=== PATIENT | female | born 1970 | race Caucasian/White ===

== ENCOUNTER 2017-02-11 15:35 | Observation (INO) | payer MEDICAID, OTHER ==
[~2017-02-11] VITALS: Ht 170.2 cm; Wt 67.0 kg
[~2017-02-11 15:35] MED LIST: CEPH-368 PO; CITA10TA8; CITA20TA9 PO; GABA100C8 PO; MELO-184; TRAZ100T15
[2017-02-11] MEDS ORDERED: ALPR0.25 PO (15:47)
[2017-02-11] MEDS ORDERED: SODIUM CHLORIDE 0.9% 1,000 ML IV ONE (15:59)
[2017-02-11] MEDS ORDERED: SODIUM CHLORIDE 0.9% 1,000ML IVBOLUS ONE (16:00)
[2017-02-11] MEDS ORDERED: ONDANSETRON 2MG/ML, 2ML IVPush ONE (16:00)
[2017-02-11 16:34] LABS: ASPARTATE AMINO TRANSFERASE 31 U/L (15-37); BLOOD UREA NITROGEN 18 mg/dL (7-18)
[2017-02-11 16:44] LABS: ACETAMINOPHEN < 2 mcg/mL (10-30)
[2017-02-11 18:37] LABS: DAU SCREEN DISCLAIMER
[2017-02-11] MEDS ORDERED: LORazepam 1MG TABLET PO ONE (20:00)
[2017-02-11] MEDS ORDERED: LORazepam 1MG TABLET ONE ×2 (20:08→22:24)
[2017-02-11] MEDS ORDERED: DIPHENHYDRAMINE 50 MG CAPSULE PO PRN (21:30)
[2017-02-11] MEDS ORDERED: ONDANSETRON ODT 4 MG PO PRN (21:30)
[2017-02-11] MEDS ORDERED: ACETAMINOPHEN 325 MG TABLET PO PRN (21:30)
[2017-02-11] MEDS ORDERED: POLYETHYLENE GLYCOL 17 GM PACKET PO PRN (21:30)
[2017-02-11] MEDS ORDERED: ZIPRASIDONE 20 MG INJ IM PRN (21:30)
[2017-02-11] MEDS ORDERED: HALOPERIDOL 5 MG TABLET PO PRN (21:30)
[2017-02-11] MEDS ORDERED: DOCUSATE 100 MG CAPSULE PO PRN (21:30)
[2017-02-12 01:52] VITALS: BP 119/81
[2017-02-12 02:16] VITALS: BP 120/75
[2017-02-12 07:47] VITALS: BP 152/86
[2017-02-12] MEDS ORDERED: OLANZAPINE 10 MG TABLET PO PRN (08:00)
[2017-02-12] MEDS ORDERED: LORazepam 1MG TABLET PO PRN (08:00)
[2017-02-12] MEDS: CITALOPRAM 20 MG TABLET PO SCH (08:24)
[2017-02-12] MEDS: CYANOCOBALAMIN 1,000 MCG TABLET PO SCH (08:24)
[2017-02-12] MEDS: FOLIC ACID 1 MG TABLET PO SCH (08:24)
[2017-02-12] MEDS: THIAMINE 100MG TABLET PO SCH (08:24)
[2017-02-12] MEDS: GABAPENTIN 100 MG CAPSULE PO SCH ×3 (08:25→20:11)
[2017-02-12] MEDS: MULTIVITAMIN 1 TABLET PO SCH (08:25)
[2017-02-12] MEDS: ASPIRIN 81 MG TABLET EC PO SCH (08:25)
[2017-02-12] MEDS: BACLOFEN 10 MG TABLET PO SCH ×2 (08:26→20:11)
[2017-02-12] MEDS ORDERED: POTASSIUM CHLORIDE 20 MEQ TAB.ER.PRT PO ONE (08:30)
[2017-02-12 20:01] VITALS: BP 160/91
[2017-02-13] MEDS: ASPIRIN 81 MG TABLET EC PO SCH (06:22)
[2017-02-13 07:58] VITALS: BP 133/96
[2017-02-13] MEDS: THIAMINE 100MG TABLET PO SCH (09:08)
[2017-02-13] MEDS: CYANOCOBALAMIN 1,000 MCG TABLET PO SCH (09:08)
[2017-02-13] MEDS: GABAPENTIN 100 MG CAPSULE PO SCH ×3 (09:08→20:54)
[2017-02-13] MEDS: CITALOPRAM 20 MG TABLET PO SCH (09:08)
[2017-02-13] MEDS: BACLOFEN 10 MG TABLET PO SCH (09:08)
[2017-02-13] MEDS: FOLIC ACID 1 MG TABLET PO SCH (09:08)
[2017-02-13] MEDS: MULTIVITAMIN 1 TABLET PO SCH (09:08)
[2017-02-13] MEDS: ACAMPROSATE 333 MG TABLET.DR PO SCH ×2 (15:36→20:55)
[2017-02-13] MEDS ORDERED: TRAZODONE 50MG TABLET PO PRN (16:30)
[2017-02-13] MEDS ORDERED: ACAM333T7 PO (17:45)
[2017-02-13] MEDS ORDERED: TRAZ100T15 PO ×2 (17:46→17:48)
[2017-02-13 20:00] VITALS: BP 131/79
[2017-02-14] MEDS: ASPIRIN 81 MG TABLET EC PO SCH (05:57)
[2017-02-14 08:00] VITALS: BP 119/78
[2017-02-14] MEDS: MULTIVITAMIN 1 TABLET PO SCH (08:29)
[2017-02-14] MEDS: THIAMINE 100MG TABLET PO SCH (08:29)
[2017-02-14] MEDS: GABAPENTIN 100 MG CAPSULE PO SCH (08:30)
[2017-02-14] MEDS: FOLIC ACID 1 MG TABLET PO SCH (08:30)
[2017-02-14] MEDS: ACAMPROSATE 333 MG TABLET.DR PO SCH (08:30)
[2017-02-14] MEDS: CYANOCOBALAMIN 1,000 MCG TABLET PO SCH (08:30)
[2017-02-14] MEDS: CITALOPRAM 20 MG TABLET PO SCH (08:30)
== END 2017-02-14 10:10 | disposition home or self-care (01) ==
LOC: SUATTDRO 21:30 → ED 21:47 → EDIP 21:50 → 3E 02-12 01:47
PROVIDERS: ADMIT Family Medicine
DX: R45.851 Suicidal ideations (principal); D68.51 Activated protein C resistance; E87.6 Hypokalemia; D64.9 Anemia, unspecified; E44.1 Mild protein-calorie malnutrition; F10.239 Alcohol dependence with withdrawal, unspecified; Z87.891 Personal history of nicotine dependence
CPT/HCPCS: 36415; 70450; 80053; 80307; 80329; 84703; 85025; 96360; 96361; 99285; G0378; J7030; G0480

== ENCOUNTER 2017-03-27 11:31 | Emergency (ER) | payer MEDICAID ==
[~2017-03-27] VITALS: Ht 167.6 cm; Wt 64.0 kg
[~2017-03-27 11:31] MED LIST changes: +ACAM333T7 PO; +ALPR0.25 PO; +GABA-826 PO; -GABA100C8 PO; +TRAZ100T15 PO
[2017-03-27 11:38] VITALS: BP 102/62
== END 2017-03-27 13:08 | disposition home or self-care (01) ==
LOC: ED 13:02
DX: F10.229 Alcohol dependence with intoxication, unspecified (principal); Z88.8 Allergy status to other drugs, medicaments and biological substances
CPT/HCPCS: 99283

== ENCOUNTER 2017-05-03 16:17 | Emergency (ER) | payer MEDICAID ==
[~2017-05-03] VITALS: Ht 170.2 cm; Wt 75.0 kg
[2017-05-03] MEDS ORDERED: ZIPRASIDONE 20 MG INJ IM ONE ×3 (16:30→17:00)
[2017-05-03 18:32] VITALS: BP 116/73
== END 2017-05-03 19:34 | disposition left against medical advice (07) ==
LOC: ED 18:15
DX: F10.120 Alcohol abuse with intoxication, uncomplicated (principal); F17.200 Nicotine dependence, unspecified, uncomplicated
CPT/HCPCS: 96372; 99283; J3486

== ENCOUNTER 2017-05-18 19:20 | Emergency (ER) | payer MEDICAID ==
[~2017-05-18] VITALS: Ht 162.6 cm; Wt 68.0 kg
[2017-05-18] MEDS ORDERED: LORazepam 2 MG/ML, 1ML ONE (19:51)
[2017-05-18] MEDS ORDERED: LORazepam 1MG TABLET PO ONE (20:00)
[2017-05-18] MEDS ORDERED: NICOTINE 14MG/24 HR PATCH.TD24 TD ONE (20:00)
[2017-05-18] MEDS ORDERED: LORazepam 2 MG/ML, 1ML IM ONE (20:30)
[2017-05-19 01:29] VITALS: BP 123/85
== END 2017-05-19 01:37 | disposition home or self-care (01) ==
LOC: ED 22:21
DX: F33.1 Major depressive disorder, recurrent, moderate (principal); F10.229 Alcohol dependence with intoxication, unspecified
CPT/HCPCS: 96372; 99284; J2060

== ENCOUNTER 2017-07-13 21:27 | Emergency (ER) | payer MEDICAID ==
[~2017-07-13 21:27] MED LIST changes: -MELO-184; +MELO15TA24
== END 2017-07-13 21:43 | disposition left against medical advice (07) ==
LOC: ED 21:37
DX: F10.129 Alcohol abuse with intoxication, unspecified (principal); Z53.21 Procedure and treatment not carried out due to patient leaving prior to being seen by health care provider

== ENCOUNTER 2017-07-15 15:36 | Emergency (ER) | payer MEDICAID ==
[~2017-07-15] VITALS: Ht 162.6 cm; Wt 65.9 kg
[2017-07-15 18:02] VITALS: BP 121/77
== END 2017-07-15 21:10 | disposition home or self-care (01) ==
LOC: ED 15:53
DX: F10.229 Alcohol dependence with intoxication, unspecified (principal)
CPT/HCPCS: 99283